=== PATIENT | female | born 1955 | race Caucasian/White ===

== ENCOUNTER → 2017-01-23 | Outpatient (CLI) | payer BC ==
[~2017-01-23] MED LIST: CHOL2000 PO; ESTR0.3T PO; LVT.05T PO
--- NOTE | 2017-01-23 18:49 | Diagnostic Imaging Report ---
Bilateral screening mammogram The current study was also evaluated with a Computer Aided Detection (CAD) system. Indication: Screening. No current complaints stated on the questionnaire. COMPARISON: 01/08/16. FINDINGS: The breasts are composed of almost entirely fat tissue. There is no mass, architectural distortion or suspicious cluster of calcification. Allowing for technique and positional differences, no suspicious change is seen. IMPRESSION: No significant change. ACR BI-RADS Category 2: Benign findings. Result letter will be mailed to the patient. Note: At least 10% of breast cancer is not imaged by mammography. Dictated by: Dictated on workstation # [id number]
== END ==
LOC: RAD 07:26
PROVIDERS: ATTEND Internal Medicine
DX: Z12.31 Encounter for screening mammogram for malignant neoplasm of breast (principal)
CPT/HCPCS: 77067

== ENCOUNTER → 2018-02-17 | Outpatient (CLI) | payer BC ==
--- NOTE | 2018-02-17 19:11 | Diagnostic Imaging Report ---
INDICATION: Routine screening. Comparison is made with prior study from 01/23/2017 and 01/08/2016. 2-D and 3-D bilateral screening mammography was performed with CAD. The current study was also evaluated with a Computer Aided Detection (CAD) system. FINDINGS: Both breasts are primarily involutional. Nodular densities in the inferior left breast anterior depth appear stable when compared with prior mammograms and consistent with benign etiology. No new mass or malignant-appearing microcalcifications are seen. The axillae are unremarkable. IMPRESSION: No mammographic features suspicious for malignancy are identified. ACR BI-RADS Category 2: Benign findings. Result letter will be mailed to the patient. Note: At least 10% of breast cancer is not imaged by mammography. Dictated by: Dictated on workstation # [id number]
== END ==
LOC: RAD 07:37
PROVIDERS: ATTEND Nurse Practitioner
DX: Z12.31 Encounter for screening mammogram for malignant neoplasm of breast (principal)
CPT/HCPCS: 77067

== ENCOUNTER → 2019-02-23 | Outpatient (CLI) | payer BC ==
--- NOTE | 2019-02-23 14:31 | Diagnostic Imaging Report ---
INDICATION: Routine screening. COMPARISON: 02/17/2018 and 01/23/2017. TECHNIQUE: 2D and 3D bilateral screening mammography was performed with CAD. FINDINGS: Both breasts are primarily involutional. Nodular densities on the left are stable. No new mass or malignant appearing microcalcifications are seen. The axillae are unremarkable. IMPRESSION: No mammographic features suspicious for malignancy are identified. ACR BI-RADS Category 2: Benign findings. Result letter will be mailed to the patient. Note: At least 10% of breast cancer is not imaged by mammography. Dictated by: Dictated on workstation # [id number]
== END ==
LOC: RAD 07:28
PROVIDERS: ATTEND Physician Assistant
DX: Z12.31 Encounter for screening mammogram for malignant neoplasm of breast (principal)
CPT/HCPCS: 77067

== ENCOUNTER → 2020-05-30 | Outpatient (CLI) | payer MEDICARE ==
--- NOTE | 2020-05-30 12:34 | Diagnostic Imaging Report ---
INDICATION: Routine screening. COMPARISON: 02/23/2019 and 02/17/2018. TECHNIQUE: 2D and 3D bilateral screening mammography was performed with CAD. FINDINGS: Scattered fibroglandular densities are identified bilaterally. The parenchymal pattern is stable. The patient has developed some oil cysts in the retroareolar aspect of the left breast. No spiculated mass or malignant appearing microcalcifications are seen. The axillae are unremarkable. IMPRESSION: No mammographic features suspicious for malignancy are identified. ACR BI-RADS Category 2: Benign findings. Result letter will be mailed to the patient. Note: At least 10% of breast cancer is not imaged by mammography. Dictated by: Dictated on workstation # [id number]
== END ==
LOC: RAD 07:29
PROVIDERS: ATTEND Physician Assistant
DX: Z12.31 Encounter for screening mammogram for malignant neoplasm of breast (principal)
CPT/HCPCS: 77063; 77067

== ENCOUNTER → 2020-07-06 | Outpatient (CLI) | payer MEDICARE ==
--- NOTE | 2020-07-06 17:01 | Diagnostic Imaging Report ---
PROCEDURE: CT head without contrast. TECHNIQUE: Multiple contiguous axial images were obtained through the brain without the use of intravenous contrast. Auto Exposure Controls were utilized during the CT exam to meet ALARA standards for radiation dose reduction. INDICATION: Headache and double vision this morning, diplopia and dizziness. COMPARISON: None. FINDINGS: The ventricles and cortical sulci are age-appropriate. There is no midline shift or mass effect. No acute intracranial hemorrhage is seen. There is no CT evidence of acute territorial ischemia. The calvarium appears intact. Visualized paranasal sinuses are clear. IMPRESSION: 1. No acute intracranial hemorrhage or CT evidence of acute territorial ischemia. Dictated by: Dictated on workstation # [id number]
== END ==
LOC: RAD 16:39
PROVIDERS: ATTEND Physician Assistant
DX: H53.2 Diplopia (principal); R51.9 Headache, unspecified; R42 Dizziness and giddiness
CPT/HCPCS: 70450

== ENCOUNTER → 2020-08-10 | Outpatient (CLI) | payer MEDICARE | LOC: CARD 14:00 | PROVIDERS: ATTEND Internal Medicine Cardiovascular Disease | DX: R00.2 Palpitations (principal); I10 Essential (primary) hypertension; R07.89 Other chest pain; R00.0 Tachycardia, unspecified; E78.2 Mixed hyperlipidemia; E03.9 Hypothyroidism, unspecified | CPT/HCPCS: 93225; 93226; 93306 ==

== ENCOUNTER → 2020-12-11 | Outpatient (CLI) | payer MEDICARE | LOC: LABNPT 06:00 | PROVIDERS: ATTEND Internal Medicine | DX: Z20.822 Contact with and (suspected) exposure to COVID-19 (principal) | CPT/HCPCS: 87635 ==

== ENCOUNTER → 2020-12-25 | Outpatient (CLI) | payer MEDICARE | LOC: LABNPT 06:04 | PROVIDERS: ATTEND Internal Medicine | DX: Z20.822 Contact with and (suspected) exposure to COVID-19 (principal) | CPT/HCPCS: 87635 ==

== ENCOUNTER → 2021-01-05 | Outpatient (CLI) | payer MEDICARE ==
--- NOTE | 2021-01-05 12:49 | Diagnostic Imaging Report ---
CLINICAL INDICATION: Patient with diplopia since July. Patient has history of cataract surgery. No history of cancer. EXAM: Axial CT scan of the orbits performed without IV contrast. Sagittal and coronal reformatted images are created. Auto Exposure Controls were utilized during the CT exam to meet ALARA standards for radiation dose reduction. COMPARISON: Head CT without contrast dated 07/06/2020. FINDINGS: There are postoperative changes to both globes which may be related to lens implants. Otherwise, both globes and orbits are unremarkable. There is no bony mass or destructive process seen. There is no retrobulbar fluid collection. The extraocular muscles are relatively symmetric bilaterally and unremarkable. There is no periorbital soft tissue abnormality. There is mild rightward nasal septal deviation noted. There is promise bullosa of left middle nasal turbinate. There is no significant paranasal sinus disease as visualized. IMPRESSION: 1: There are postoperative changes to both globes which may be related to lens implants from cataract surgery. Otherwise, unremarkable CT scan of the orbits and globes. 2: There is mild rightward nasal septal deviation. Dictated by: Dictated on workstation # [id number]
== END ==
LOC: RAD 07:45
PROVIDERS: ATTEND Internal Medicine
DX: H53.2 Diplopia (principal); J34.2 Deviated nasal septum; E03.8 Other specified hypothyroidism; E06.3 Autoimmune thyroiditis
CPT/HCPCS: 36415; 70480; 84445

== ENCOUNTER → 2021-07-18 | Outpatient (CLI) | payer MEDICARE ==
--- NOTE | 2021-07-18 12:59 | Diagnostic Imaging Report ---
Indication: Routine screening. Comparison is made with prior mammogram 05/30/2020 and 02/23/2019. 2-D and 3-D bilateral screening mammography was performed with CAD. Scattered fibroglandular densities are identified bilaterally. The parenchymal pattern is stable. No dominant mass or malignant-appearing microcalcifications are seen. Oil cyst in the retroareolar left breast again noted. Axillae are unremarkable. IMPRESSION: BI-RADS Category 2 No mammographic features suspicious for malignancy are identified. ACR BI-RADS Category 2: Benign findings. Result letter will be mailed to the patient. Note: At least 10% of breast cancer is not imaged by mammography. Dictated by: Dictated on workstation # [id number]
== END ==
LOC: RAD 08:00
PROVIDERS: ATTEND Nurse Practitioner
DX: Z12.31 Encounter for screening mammogram for malignant neoplasm of breast (principal)
CPT/HCPCS: 77063; 77067

== ENCOUNTER → 2021-07-20 | Outpatient (CLI) | payer MEDICARE ==
--- NOTE | 2021-07-20 11:15 | Diagnostic Imaging Report ---
PROCEDURE: US Thyroid. TECHNIQUE: Multiple real-time grayscale images were obtained of the thyroid in various projections. INDICATION: Graves' disease COMPARISON: None available FINDINGS: The right lobe measures 4.0 x 1.3 x 1.5 cm. The right thyroid lobe demonstrates a diffusely heterogeneous echotexture. A round hypoechoic nodule with posterior acoustic enhancement and circumscribed margins is noted within the mid right thyroid lobe measuring 1.1 x 1.0 x 0.7 cm. The left lobe of the thyroid gland measures 3.5 x 1.0 x 1.4 cm. It demonstrates a diffusely heterogeneous echotexture without discrete nodule. The isthmus is unremarkable. IMPRESSION: There is a 1.1 cm TI-RADS 4 nodule within the mid right thyroid lobe. Recommend a follow-up ultrasound in one year to ensure stability. Diffusely heterogeneous thyroid gland without left thyroid nodule. Dictated by: Dictated on workstation # [id number]
== END ==
LOC: RAD 08:20
PROVIDERS: ATTEND Physician Assistant
DX: E05.00 Thyrotoxicosis with diffuse goiter without thyrotoxic crisis or storm (principal); E04.1 Nontoxic single thyroid nodule
CPT/HCPCS: 76536

== ENCOUNTER → 2022-07-19 | Outpatient (CLI) | payer MEDICARE ==
--- NOTE | 2022-07-19 11:41 | Diagnostic Imaging Report ---
Indication: Routine screening. Comparison is made with prior mammograms from 07/18/2021 and 05/30/2020. 2-D and 3-D bilateral screening mammography was performed with CAD. Both breasts are primarily involutional. The parenchymal pattern appears stable. No spiculated mass or malignant-appearing microcalcifications are seen. Benign-appearing nodular densities in the left breast are stable. Axillae are unremarkable. IMPRESSION: BI-RADS Category 2 No mammographic features suspicious for malignancy are identified. ACR BI-RADS Category 2: Benign findings. Result letter will be mailed to the patient. Note: At least 10% of breast cancer is not imaged by mammography. Dictated by: Dictated on workstation # [id number]
== END ==
LOC: RAD 08:33
PROVIDERS: ATTEND Physician Assistant
DX: Z12.31 Encounter for screening mammogram for malignant neoplasm of breast (principal)
CPT/HCPCS: 77063; 77067

== ENCOUNTER → 2022-07-19 | Outpatient (CLI) | payer MEDICARE ==
--- NOTE | 2022-07-19 16:24 | Diagnostic Imaging Report ---
PROCEDURE: US Thyroid. TECHNIQUE: Multiple real-time grayscale images were obtained of the thyroid in various projections. INDICATION: Thyroid nodule. COMPARISON: 07/20/2021. FINDINGS: Right thyroid lobe: The right thyroid lobe measures 3.7 x 1.3 x 1.5 cm. It is again noted to be heterogeneous. Solid hypoechoic nodule with circumscribed margins, no echogenic foci that is widened tall, is stable in size measuring 1.3 cm (previously 1.1 cm). This is compatible with a TI RADS 4 lesion. Isthmus: The thyroid isthmus measures 0.2 cm. Left thyroid lobe: The left thyroid lobe measures 3.6 x 1.1 x 1.2 cm and is heterogeneous. No focal nodule. IMPRESSION: Stable right thyroid nodule. Additional follow-up in one year is recommended. TI-RADS Recommendations:TR4 - Moderately Suspicious: FNA if >1.5 cm; Follow if > 1.0 cm at 1, 2, 3 and 5 years. Dictated by: Dictated on workstation # [id number]
== END ==
LOC: RAD 08:47
PROVIDERS: ATTEND Internal Medicine
DX: E04.1 Nontoxic single thyroid nodule (principal)
CPT/HCPCS: 76536

== ENCOUNTER 2022-11-20 11:22 | Outpatient (CLI) | payer MEDICARE ==
[~2022-11-20] VITALS: Ht 160 cm; Wt 71.2 kg
[2022-11-20] MEDS ORDERED: OMEG100032 PO (12:54)
[2022-11-20] MEDS ORDERED: METO50TA7 PO (12:54)
== END 2022-11-20 12:58 | disposition home or self-care (01) ==
LOC: PREOP 11:22
PROVIDERS: ATTEND Surgery
DX: Z01.818 Encounter for other preprocedural examination (principal)

== ENCOUNTER 2022-11-27 10:51 | Day surgery (SDC) | payer MEDICARE ==
[~2022-11-27] VITALS: Ht 160 cm; Wt 71.2 kg
[~2022-11-27 10:51] MED LIST changes: +METO50TA7 PO; +OMEG100032 PO
[2022-11-27] MEDS ORDERED: LACTATED RINGERS 1,000 ML IV STA (10:59)
[2022-11-27] MEDS ORDERED: LIDOCAINE JELLY 2% 6 ML SYRINGE MM PRN (11:00)
[2022-11-27] MEDS ORDERED: LIDOCAINE JELLY 2% 6 ML SYRINGE ONE (11:10)
[2022-11-27 11:20] VITALS: BP 133/66
[2022-11-27] MEDS ORDERED: PROPOFOL INJECTION 50 ML IV ONE (11:38)
[2022-11-27] MEDS ORDERED: ONDANSETRON 4 MG (ZOFRAN) ORAL DISSOLVE TAB PO PRN (11:45)
[2022-11-27] MEDS ORDERED: ONDANSETRON 4 MG/2 ML (SDV) Z0FRAN IVP PRN (11:45)
--- NOTE | 2022-11-27 11:45 | Progress Note-Pre Operative ---
Pre-Operative Progress Note Date of Available H&P: Nov 27, 2022 Date H&P Reviewed: Nov 27, 2022 Time H&P Reviewed: 11:00 History & Physical: No changes noted Pre-Operative Diagnosis: screening o ASTRID GUTIERREZ MD Nov 27, 2022 11:45
[2022-11-27] MEDS ORDERED: MIDAZOLAM 2 MG/2 ML (VERSED) VIAL ONE (11:46)
--- NOTE | 2022-11-27 11:47 | Discharge Inst-Surgical ---
D/C Lap Instructions-BRENDA Follow Up Activity as tolerated High Fiber Diet 25g or more per day Avoid Alcohol, Caffeine, Spicy [place] and Acid foods. Drink 64 fluid oz or more of fluids per day. Symptoms to Report: Fever over 101 degree F, Nausea/Vomiting If any problems/questions: Contact your physician or go to Emergency Room ASTRID GUTIERREZ MD Nov 27, 2022 11:46
[2022-11-27 12:25] VITALS: BP 85/49
[2022-11-27 12:30] VITALS: BP 88/51
--- NOTE | 2022-11-27 12:34 | Progress Note-Post Operative ---
Post-Operative Progess Note Surgeon (s)/Knockout Machine Operator (s) Surgeon ASTRID GUTIERREZ MD Knockout Machine Operator: none Pre-Operative Diagnosis screening colo Post-Operative Diagnosis mild sigmoid diverticulosis. Procedure & Operative Findings Date of Procedure 11/27/22 Procedure Performed/Findings colonoscopy Anesthesia Type get Estimated Blood Loss Estimated blood loss (mL): minimal Specimens/Packing Specimens Removed none ASTRID GUTIERREZ MD Nov 27, 2022 12:34
[2022-11-27 12:35] VITALS: BP 88/51
--- NOTE | 2022-11-27 13:04 | Anesthesia-General Post-Op ---
MAC Patient Condition Mental Status/LOC: Same as Preop Cardiovascular: Satisfactory Nausea/Vomiting: Absent Respiratory: Satisfactory Pain: Controlled Complications: Absent Post Op Complications Complications None Follow Up Care/Instructions Patient Instructions None needed. Anesthesiology Discharge Order Discharge Order Patient is doing well, no complaints, stable vital signs, no apparent adverse anesthesia problems. No complications reported per nursing. VINNY PIKE CRNA Nov 27, 2022 13:04
[2022-11-27 13:08] VITALS: BP 88/51
--- NOTE | 2022-11-27 19:49 | OPERATIVE REPORT ---
DATE OF SERVICE: 11/27/2022 ATTENDING PRIMARY CARE PHYSICIAN: Jeremie Bender MD PREOPERATIVE DIAGNOSIS: Screening colonoscopy. POSTOPERATIVE DIAGNOSIS: Mild sigmoid diverticulosis. PROCEDURE: Colonoscopy. SURGEON: Astrid Gutierrez MD ANESTHESIA: Monitored anesthesia care. ESTIMATED BLOOD LOSS: Minimal. FINDINGS: Mild sigmoid diverticulosis. DISPOSITION: The patient tolerated the procedure well. INDICATIONS: The patient is a 67-year-old female referred over to us for screening colonoscopy. She did have a colonoscopy approximately 10 years ago and states that this was normal. She does not report any major issues with diarrhea, nor constipation as well as no red blood per rectum, nor any dark tarry stools. She also does not report any family history of colon cancer. DESCRIPTION OF PROCEDURE: The patient was brought to the endoscopy suite and laid in the left lateral decubitus position. After adequate IV pain and sedative medications and monitored anesthesia care, a digital rectal examination was performed. No significant hemorrhoids identified. Normal sphincter tone was felt and there were no palpable masses. The endoscope was then intubated into the anus, rectum gently insufflated. The endoscope was then advanced through the valves of Andrade of the rectum with no polyps or any neoplasms identified. Through the sigmoid colon, a mild sigmoid diverticulosis identified. The endoscope was then advanced to the remainder of the descending, transverse and ascending colon to the cecum, which were normal. No polyps or any neoplasms identified. The endoscope was slowly withdrawn while taking a second look and suctioning of residual air with no additional findings. The patient tolerated the procedure well. We will recommend continued medical management with a high-fiber diet with fiber supplement to equal or exceed 25 grams daily as well as significant amounts of water to promote soft consistency stools on a daily basis and if she is asymptomatic, she does not need another colonoscopy for another 10 years. Job ID: [id number] DocumentID: [id number] Dictated Date: 11/27/2022 12:27:56 Bridal Stylist Sales Consultant Date: 11/27/2022 19:11:00 Dictated By: ASTRID GUTIERREZ MD
== END 2022-11-27 13:40 | disposition home or self-care (01) ==
LOC: ENDO 10:51
PROVIDERS: ATTEND Surgery
DX: Z12.11 Encounter for screening for malignant neoplasm of colon (principal); K57.30 Diverticulosis of large intestine without perforation or abscess without bleeding; E03.9 Hypothyroidism, unspecified; Z79.890 Hormone replacement therapy

== ENCOUNTER 2022-11-29 11:58 | Emergency (ER) | payer MEDICARE ==
[~2022-11-29] VITALS: Ht 160 cm; Wt 68.0 kg
[2022-11-29] MEDS ORDERED: fentaNYL INJ 100 MCG/2 ML AMP IVP STA (12:21)
--- NOTE | 2022-11-29 12:21 | ED Abdominal Pain ---
General Chief Complaint: Abdominal/GI Problems Stated Complaint: LEFT SIDE PAIN | History of Present Illness Date Seen by Provider: Nov 29, 2022 Time Seen by Provider: 12:20 Initial Comments 67-year-old female presents with left lower quadrant pain. Patient reports that started about 45 minutes prior to arrival. That the pain is 10 all over. She does report a history of kidney stones that is similar however she also had a colonoscopy 2 days ago. Patient reports some mild nausea, pain has spread to be a little bit more diffuse. Allergies and Home Medications Allergies Coded Allergies: Iodine (Verified Allergy, Unknown, 10/14/08) Patient Home Medication List Home Medication List Reviewed: Yes Cholecalciferol (Vitamin D) 2,000 Unit Capsule, 2,000 UNIT PO DAILY, (Reported) Entered as Reported by: MARI DUBOIS on 08/12/12 1324 Levothyroxine Sodium (Synthroid) 50 Mcg Tablet, 1 EACH PO DAILY, (Reported) Entered as Reported by: MARI DUBOIS on 08/12/12 1324 Metoprolol Succinate (Metoprolol Succinate) 50 Mg Tab.er.24h, 50 MG PO DAILY, (Reported) Entered as Reported by: CLAUDIA VASQUEZ on 11/20/22 1254 [place]-3/Dha/Epa/Fish Oil (Fish Oil 1,000 mg Softgel) 1,000 Mg (120 Mg-180 Mg) Capsule, 1,000 MG PO DAILY, (Reported) Entered as Reported by: CLAUDIA VASQUEZ on 11/20/22 1254 Review of Systems Review of Systems Constitutional: No chills, No fever EENTM: No Symptoms Reported Respiratory: No Symptoms Reported Cardiovascular: No Symptoms Reported Gastrointestinal: Abdominal Pain, Nausea; Denies Vomiting Genitourinary: See HPI Musculoskeletal: no symptoms reported Skin: no symptoms reported Psychiatric/Neurological: No Symptoms Reported Endocrine: No Symptoms Reported Hematologic/Lymphatic: No Symptoms Reported Past [id number] Hx Immunizations Up To Date First/Initial COVID19 Vaccinat: YES Second COVID19 Vaccination Jimmy: YES Third COVID19 Vaccination Date: NO Seasonal Allergies Seasonal Allergies: No Past Medical History Surgeries: Yes (BILAT CATARACT) Hysterectomy Respiratory: No Cardiac: Yes High Cholesterol Neurological: No Genitourinary: No Gastrointestinal: No Musculoskeletal: No Endocrine: Yes (HYPOTHYROIDISM) HEENT: No Cancer: No Psychosocial: No Integumentary: No Blood Disorders: No Physical Exam Vital Signs Vital Signs - First Documented 11/29/22 12:17 Temp 36.4 Pulse 82 Resp 26 B/P (MAP) 147/96 (113) Pulse Ox 100 O2 Delivery Room Air Capillary Refill : Height/Weight/BMI Height: '" Weight: lbs. oz. kg; 27.81 BMI Method: General Appearance: mild distress Respiratory: lungs clear, normal breath sounds Cardiovascular: normal peripheral pulses, regular rate, rhythm Gastrointestinal: rebound, tenderness Back: No CVA tenderness (R), No CVA tenderness (L) Neurologic/Psychiatric: alert, normal mood/affect, oriented x 3 Skin: normal color, warm/dry Focused Exam Lactate Level 11/29/22 12:45: Lactic Acid Level 3.61*H Lactic Acid Level Laboratory Tests Test 11/29/22 12:45 Lactic Acid Level 3.61 MMOL/L (0.50-2.00) *H Progress/Results/Core Measures Results/Orders Lab Results Laboratory Tests Test 11/29/22 12:30 11/29/22 12:45 11/29/22 13:35 Range/Units White Blood Count 10.6 4.3-11.0 10^3/uL Red Blood Count 4.81 3.80-5.11 10^6/uL Hemoglobin 13.9 11.5-16.0 g/dL Hematocrit 42 35-52 % Mean Corpuscular Volume 87 80-99 fL Mean Corpuscular Hemoglobin 29 25-34 pg Mean Corpuscular Hemoglobin Concent 33 32-36 g/dL Red Cell Distribution Width 13.5 10.0-14.5 % Platelet Count 298 130-400 10^3/uL Mean Platelet Volume 9.2 9.0-12.2 fL Immature Granulocyte % (Auto) 1 % Neutrophils (%) (Auto) 48 42-75 % Lymphocytes (%) (Auto) 43 12-44 % Monocytes (%) (Auto) 7 0-12 % Eosinophils (%) (Auto) 1 0-10 % Basophils (%) (Auto) 1 0-10 % Neutrophils # (Auto) 5.1 1.8-7.8 10^3/uL Lymphocytes # (Auto) 4.5 H 1.0-4.0 10^3/uL Monocytes # (Auto) 0.7 0.0-1.0 10^3/uL Eosinophils # (Auto) 0.1 0.0-0.3 10^3/uL Basophils # (Auto) 0.1 0.0-0.1 10^3/uL Immature Granulocyte # (Auto) 0.1 0.0-0.1 10^3/uL Sodium Level 140 135-145 MMOL/L Potassium Level 3.7 3.6-5.0 MMOL/L Chloride Level 106 98-107 MMOL/L Carbon Dioxide Level 20 L 21-32 MMOL/L Anion Gap 14 5-14 MMOL/L Blood Urea Nitrogen 14 7-18 MG/DL Creatinine 0.79 0.60-1.30 MG/DL Estimat Glomerular Filtration Rate 81 BUN/Creatinine Ratio 18 Glucose Level 129 H 70-105 MG/DL Calcium Level 9.1 8.5-10.1 MG/DL Corrected Calcium 9.0 8.5-10.1 MG/DL Total Bilirubin 0.4 0.1-1.0 MG/DL Aspartate Amino Transf (AST/SGOT) 23 5-34 U/L Alanine Aminotransferase (ALT/SGPT) 26 0-55 U/L Alkaline Phosphatase 84 40-136 U/L Total Protein 7.1 6.4-8.2 GM/DL Albumin 4.1 3.2-4.5 GM/DL Lactic Acid Level 3.61 *H 0.50-2.00 MMOL/L Urine Color YELLOW Urine Clarity CLEAR Urine pH 5.5 5-9 Urine Specific [place] >=1.030 1.016-1.022 Urine Protein NEGATIVE NEGATIVE Urine Glucose (UA) NEGATIVE NEGATIVE Urine Ketones NEGATIVE NEGATIVE Urine Nitrite NEGATIVE NEGATIVE Urine Bilirubin NEGATIVE NEGATIVE Urine Urobilinogen 0.2 < = 1.0 MG/DL Urine Leukocyte Esterase NEGATIVE NEGATIVE Urine RBC (Auto) 3+ H NEGATIVE Urine RBC 25-50 H /HPF Urine WBC RARE /HPF Urine Squamous Epithelial Cells RARE /HPF Urine Crystals NONE /LPF Urine Bacteria TRACE /HPF Urine Casts NONE /LPF Urine Mucus NEGATIVE /LPF Urine Culture Indicated NO My Orders Orders - RICHELLE ANTHONY DO Cbc With Automated Diff (11/29/22 12:21) Comprehensive Metabolic Panel (11/29/22 12:21) Lactic Acid Analyzer (11/29/22 12:21) Ua Culture If Indicated (11/29/22 12:21) Ondansetron Injection (Zofran Injectio (11/29/22 12:30) Fentanyl Inj (Sublimaze Injection) (11/29/22 12:21) Ct Abdomen/Pelvis Wo (11/29/22 12:21) Ketorolac Injection (Toradol Injection) (11/29/22 12:54) Ns Iv 1000 Ml (Sodium Chloride 0.9%) (11/29/22 13:13) Ns Iv 1000 Ml (Sodium Chloride 0.9%) (11/29/22 13:39) Medications Given in ED Current Medications Medications Dose Ordered Sig/Alana Route Start Time Stop Time Status Last Admin Dose Admin Ondansetron HCl 4 mg ONCE ONCE IVP 11/29/22 12:30 11/29/22 12:31 DC 11/29/22 12:36 4 MG Vital Signs/I&O 11/29/22 12:17 Temp 36.4 Pulse 82 Resp 26 B/P (MAP) 147/96 (113) Pulse Ox 100 O2 Delivery Room Air Progress Progress Note : Progress Note patient's labs were reviewed and showed no acute findings outside of some hematuria. I did review her colonoscopy report that showed no acute findings and no complications. Patient CT was reviewed and shows a 2 to 3 mm stone in the UVJ. Patient's symptoms improved with IV fluids and pain medication. Patient's lactic likely still mildly elevated from her colonoscopy and ureter stone. Patient was given 1 L IV fluids. Her vital signs were stable. Patient to be discharged home. I will provide her with a couple hydrocodone's for breakthrough pain along with some nausea medicine. Recommend she follow-up with her primary care provider if symptoms have not improved in 1 week. She is stable and discharged Diagnostic Imaging Diagonstic Imaging: CT Plain Films/CT/US/NM/MRI: abdomen Comments Draft Date of Exam:11/29/22 CT ABDOMEN/PELVIS WO PROCEDURE: CT abdomen and pelvis without contrast. TECHNIQUE: Multiple contiguous axial images were obtained through the abdomen and pelvis without the use of intravenous contrast. Auto Exposure Controls were utilized during the CT exam to meet ALARA standards for radiation dose reduction. INDICATION: Left lower quadrant abdominal pain. Nausea. COMPARISON: 10/22/2013. FINDINGS: Included portions of the lung bases show 4 mm micronodule associated with the minor fissure on the right. Lungs are otherwise clear. CT ABDOMEN: 2-3 mm micronodule is identified at the left UVJ (image 159, series 3). As a result, there is mild proximal hydroureteronephrosis. No additional renal or ureteral calculi are seen on either side. There is no hydronephrosis or other evidence of obstruction on the right. Liver shows geographic areas of decreased attenuation consistent with hepatic steatosis. The adrenal glands, spleen, and pancreas have an unremarkable noncontrast CT appearance. Small bowel loops are nondistended. Normal appendix is identified. There is no loculated fluid collection, free fluid, or free air within the abdomen. No abnormal mesenteric or retroperitoneal adenopathy is seen. Osseous structures show no acute abnormalities. CT PELVIS: Again, there is small calculus at the left UVJ. Urinary bladder is otherwise unopacified and minimally distended. There is no loculated fluid collection, free fluid, or free air within the pelvis. No abnormal adenopathy is seen. Osseous structures show no acute abnormalities. IMPRESSION: 1. Mild left-sided hydroureteronephrosis secondary to 2-3 mm calculus at the left UVJ. 2. Hepatic steatosis. 3. Small micronodule associated with the right minor fissure. Conceivably, this could be on the basis of intrafissural lymph node. If patient is in a high-risk category, such as history of smoking, one-year follow-up could be performed to ensure stability. Departure Impression Primary Impression: Left ureteral calculus Disposition: 01 HOME, SELF-CARE Condition: Stable Departure-Patient Inst. Referrals: SHEILA SORTO MD (PCP/Family) Primary Care Physician Patient Instructions: How to Strain Your Urine, Kidney Stones in Adults, Kidney Stone Diet Add. Discharge Instructions: Drink plenty of fluids, 800 mg ibuprofen every 6-8 hours as needed for pain. I have provided you a few hydrocodone's for breakthrough pain please use these sparingly. Follow-up with your primary care provider in 1 week if symptoms have not improved. All discharge instructions reviewed with patient and/or family. Voiced understanding. Scripts Hydrocodone/Acetaminophen (Hydrocodone-Acetamin 5-325 mg) 5 Mg-325 Mg Tablet 1 TAB PO Q8H PRN for PAIN-MODERATE (5-7), #5 TAB Prov: RICHELLE ANTHONY DO 11/29/22 Ondansetron (Ondansetron Odt) 4 Mg Tab.rapdis 4 MG PO Q6H PRN for NAUSEA/VOMITING, #20 TAB 0 Refills Prov: RICHELLE ANTHONY DO 11/29/22 RICHELLE ANTHONY DO Nov 29, 2022 12:21
[2022-11-29] MEDS ORDERED: ONDANSETRON 4 MG/2 ML (SDV) Z0FRAN IVP ONE (12:30)
[2022-11-29 12:40] LABS: BASOPHILS # (AUTO) 0.1 10^3/uL (0.0-0.1); BASOPHILS % (AUTO) 1 % (0-10); EOSINOPHILS # (AUTO) 0.1 10^3/uL (0.0-0.3); EOSINOPHILS % (AUTO) 1 % (0-10); HEMATOCRIT 42 % (35-52); HEMOGLOBIN 13.9 g/dL (11.5-16.0); LYMPHOCYTES # (AUTO) 4.5 10^3/uL (1.0-4.0); LYMPHOCYTES % (AUTO) 43 % (12-44); MEAN CORPUSCULAR HEMOGLOBIN 29 pg (25-34); MEAN CORPUSCULAR HGB CONC 33 g/dL (32-36); MEAN CORPUSCULAR VOLUME 87 fL (80-99); MEAN PLATELET VOLUME 9.2 fL (9.0-12.2); MONOCYTES # (AUTO) 0.7 10^3/uL (0.0-1.0); MONOCYTES % (AUTO) 7 % (0-12); NEUTROPHILS # (AUTO) 5.1 10^3/uL (1.8-7.8); NEUTROPHILS % (AUTO) 48 % (42-75); PLATELET COUNT 298 10^3/uL (130-400); WHITE BLOOD COUNT 10.6 10^3/uL (4.3-11.0)
[2022-11-29 12:50] LABS: ALBUMIN 4.1 GM/DL (3.2-4.5); POTASSIUM 3.7 MMOL/L (3.6-5.0)
[2022-11-29 12:51] LABS: CALCIUM 9.1 MG/DL (8.5-10.1)
[2022-11-29 12:52] LABS: TOTAL PROTEIN 7.1 GM/DL (6.4-8.2)
[2022-11-29 12:54] LABS: BILIRUBIN,TOTAL 0.4 MG/DL (0.1-1.0)
[2022-11-29] MEDS ORDERED: KETOROLAC 30 MG/ML VIAL IVP STA (12:54)
[2022-11-29 12:56] LABS: CREATININE SERUM 0.79 MG/DL (0.60-1.30)
[2022-11-29] MEDS ORDERED: NS IV 1000 ML 1,000 ML IV STA ×2 (13:13→13:39)
--- NOTE | 2022-11-29 13:29 | Diagnostic Imaging Report ---
PROCEDURE: CT abdomen and pelvis without contrast. TECHNIQUE: Multiple contiguous axial images were obtained through the abdomen and pelvis without the use of intravenous contrast. Auto Exposure Controls were utilized during the CT exam to meet ALARA standards for radiation dose reduction. INDICATION: Left lower quadrant abdominal pain. Nausea. COMPARISON: 10/22/2013. FINDINGS: Included portions of the lung bases show 4 mm micronodule associated with the minor fissure on the right. Lungs are otherwise clear. CT ABDOMEN: 2-3 mm micronodule is identified at the left UVJ (image 159, series 3). As a result, there is mild proximal hydroureteronephrosis. No additional renal or ureteral calculi are seen on either side. There is no hydronephrosis or other evidence of obstruction on the right. Liver shows geographic areas of decreased attenuation consistent with hepatic steatosis. The adrenal glands, spleen, and pancreas have an unremarkable noncontrast CT appearance. Small bowel loops are nondistended. Normal appendix is identified. There is no loculated fluid collection, free fluid, or free air within the abdomen. No abnormal mesenteric or retroperitoneal adenopathy is seen. Osseous structures show no acute abnormalities. CT PELVIS: Again, there is small calculus at the left UVJ. Urinary bladder is otherwise unopacified and minimally distended. There is no loculated fluid collection, free fluid, or free air within the pelvis. No abnormal adenopathy is seen. Osseous structures show no acute abnormalities. IMPRESSION: 1. Mild left-sided hydroureteronephrosis secondary to 2-3 mm calculus at the left UVJ. 2. Hepatic steatosis. 3. Small micronodule associated with the right minor fissure. Conceivably, this could be on the basis of intrafissural lymph node. If patient is in a high-risk category, such as history of smoking, one-year follow-up could be performed to ensure stability. Dictated by: Dictated on workstation # [id number]
[2022-11-29 13:42] LABS: BILIRUBIN,URINE NEGATIVE (NEGATIVE); CLARITY,URINE CLEAR; COLOR,URINE YELLOW; GLUCOSE, URINE (UA) NEGATIVE (NEGATIVE); KETONES,URINE NEGATIVE (NEGATIVE); LEUKOCYTE ESTERASE ,URINE NEGATIVE (NEGATIVE); NITRITE,URINE NEGATIVE (NEGATIVE); PH,URINE 5.5 (5-9); PROTEIN,URINE NEGATIVE (NEGATIVE)
[2022-11-29 13:50] LABS: BACTERIA,URINE TRACE /HPF; RBC,URINE 25-50 /HPF; SQUAMOUS EPITHELIAL CELL,UR RARE /HPF; WBC,URINE RARE /HPF
[2022-11-29] MEDS ORDERED: ONDA4TAB11 PO (14:21)
[2022-11-29] MEDS ORDERED: ACHD5005 PO (14:21)
[2022-11-29 14:30] VITALS: BP 129/63
== END 2022-11-29 14:30 | disposition home or self-care (01) ==
LOC: EDUNIT# 11:58 → ER 11:59
DX: N13.2 Hydronephrosis with renal and ureteral calculous obstruction (principal)
CPT/HCPCS: 36415; 74176; 80053; 81000; 83605; 85025

== ENCOUNTER → 2023-05-27 | Outpatient (CLI) | payer MEDICARE ==
[~2023-05-27] MED LIST changes: +ACHD5005 PO; +ONDA4TAB11 PO
[2023-05-27 09:23] LABS: CALCIUM 9.5 MG/DL (8.5-10.1)
[2023-05-27 09:27] LABS: CREATININE SERUM 0.74 MG/DL (0.60-1.30)
== END ==
LOC: LAB 08:39
PROVIDERS: ATTEND Internal Medicine
DX: R10.31 Right lower quadrant pain (principal)
CPT/HCPCS: 36415; 80048

== ENCOUNTER → 2023-06-04 | Outpatient (CLI) | payer MEDICARE ==
[~2023-06-04] MED LIST changes: +HOLD METFORMIN - RECEIVED CONTRAST 20 ML VIAL IV SCH; +IOHEXOL 350 MG/ML 100 ML (OMNIPAQUE 350) VIAL IV ONE; +NS 100 ML (IVPB) BAG IV ONE
--- NOTE | 2023-06-04 08:17 | Diagnostic Imaging Report ---
PROCEDURE: CT abdomen and pelvis with contrast. TECHNIQUE: Multiple contiguous axial images were obtained through the abdomen and pelvis after administration of intravenous contrast. Auto Exposure Controls were utilized during the CT exam to meet ALARA standards for radiation dose reduction. All CT scans use one or more of the following dose optimizing techniques: automated exposure control, MA and/or KvP adjustment based on patient size and exam type or iterative reconstruction. INDICATION: Right lower quadrant abdominal pain for the last 2 weeks. Comparison is made with prior CT from 11/29/2022. The lung bases are clear. Diffuse low-attenuation throughout the liver is noted consistent with hepatic steatosis. Low-attenuation lesion in the right lobe of the liver is stable and suggestive of a cyst. The gallbladder is unremarkable. There is no biliary ductal dilatation. Pancreas and spleen are unremarkable. No adrenal mass is identified. No renal calculi or hydronephrosis is identified. Aorta is nonaneurysmal. The small and large bowel loops appear to be normal caliber. Occasional diverticula are present but no evidence of acute diverticulitis. Appendix is unremarkable. There is no evidence of acute appendicitis. There is a small fat-containing umbilical hernia. No free fluid or fluid collection is seen. Bladder is decompressed. Uterus appears surgically absent. IMPRESSION: 1. Hepatic steatosis. 2. Uncomplicated diverticulosis. 3. No acute feature in the abdomen or pelvis is identified. Dictated by: Dictated on workstation # [id number]
== END ==
LOC: RAD 07:45
PROVIDERS: ATTEND Internal Medicine
DX: K76.0 Fatty (change of) liver, not elsewhere classified (principal); K57.90 Diverticulosis of intestine, part unspecified, without perforation or abscess without bleeding
CPT/HCPCS: 74177

== ENCOUNTER → 2023-07-15 | Outpatient (CLI) | payer MEDICARE ==
[~2023-07-15] MED LIST changes: -HOLD METFORMIN - RECEIVED CONTRAST 20 ML VIAL IV SCH; -IOHEXOL 350 MG/ML 100 ML (OMNIPAQUE 350) VIAL IV ONE; -NS 100 ML (IVPB) BAG IV ONE
--- NOTE | 2023-07-15 16:46 | Diagnostic Imaging Report ---
INDICATION: Thyroid nodule. Followup. COMPARISON: 07/19/2022. FINDINGS: Dedicated thyroid sonogram was performed. FINDINGS: The hypoechoic well-circumscribed noncalcified nodule is again identified within the superior margins of the right thyroid lobe. It measures 1.2 x 1 x 0.6 cm on today's exam. This is stable compared to 1.3 x 0.8 x 1 cm previously. The imaging appearance remains consistent with a TI-RADS 4 lesion. No new suspicious thyroid nodule or mass is seen on either side. Right lobe measures 2.1 x 1.1 x 1.3 cm and the left measures 2 x 0.8 x 0.8 cm. Isthmus measures 2 mm in AP thickness. Background thyroid parenchyma is homogeneous. Color flow images show normal vascularity. IMPRESSION: Stable right thyroid nodule. Repeat followup with annual thyroid sonogram is advised to ensure ongoing stability. Dictated by: Dictated on workstation # [id number]
== END ==
LOC: RAD 08:00
PROVIDERS: ATTEND Internal Medicine
DX: E04.1 Nontoxic single thyroid nodule (principal); E03.9 Hypothyroidism, unspecified
CPT/HCPCS: 76536

== ENCOUNTER → 2023-07-31 | Outpatient (CLI) | payer MEDICARE ==
[~2023-07-31] VITALS: Ht 160 cm; Wt 68.2 kg
[~2023-07-31] MED LIST changes: +EZET-55 PO; +UBID100C44 PO
== END | disposition home or self-care (01) ==
LOC: PREOP 05:29
PROVIDERS: ATTEND Surgery
DX: Z01.818 Encounter for other preprocedural examination (principal)

== ENCOUNTER 2023-08-07 12:00 | Day surgery (SDC) | payer MEDICARE ==
--- NOTE | 2023-07-30 08:16 | HISTORY AND PHYSICAL ---
DATE OF SERVICE: 08/07/2023 ATTENDING PRIMARY CARE PHYSICIAN: Dr. Jeremie Bender. HISTORY OF PRESENT ILLNESS: The patient is a 67-year-old female known to us. We had done a screening colonoscopy on her in 11/2022 and she was found to have mild sigmoid diverticulosis. She had developed some nonspecific right lateral and upper quadrant abdominal pain and she underwent a CT scan, which did show liver steatosis; however, no other abnormalities. Now she reports that in the past several months she has had worsening discomfort and states she would have episodes of pain in the right upper abdominal quadrant, which would come on all of a sudden and last for approximately 10-15 minutes and then resolve on its own. She states that this has been going on for the past several months. She then also reports in 05/2023, she was vacationing and after dinner she did have a significant episode of pain in the right upper abdominal quadrant, which persisted and this also resulted in nausea and vomiting. She underwent an ultrasound, which did not show any gallstones; however, HIDA scan done on 07/10/2023 did show ejection fraction of 15% and with the administration of the Kinevac analogue she did have reproduction of symptoms consistent with biliary dyskinesia. PAST MEDICAL HISTORY: Sinus tachycardia, thyroid eye disease, history of nephrolithiasis. PAST SURGICAL HISTORY: Bilateral cataracts, partial hysterectomy. ALLERGIES: IODINE. MEDICATIONS: Synthroid 50 mcg daily, metoprolol 50 mg daily, ezetimibe/simvastatin 10/10 mg daily, vitamin D daily. SOCIAL HISTORY: Negative smoke, negative alcohol. FAMILY HISTORY: Noncontributory. VITAL SIGNS: Blood pressure 151/73, current weight 150 pounds at 5 feet 3 inches and a body mass index of 26. REVIEW OF SYSTEMS: Well-nourished female in no acute distress. She is not experiencing any shortness of breath or difficulty breathing. No chest pain, palpitations, diaphoresis. No nausea or vomiting. No diarrhea or constipation. No fever or chills. No recent inadvertent weight loss. She is having some intermittent pain in the right upper abdominal quadrant with one episode of vomiting. No fever or chills. No recent inadvertent weight loss. All other review of systems negative. PHYSICAL EXAMINATION: CHEST: Clear. Good breath sounds bilaterally. HEART: Regular. No murmurs. EXTREMITIES: No lower extremity edema. Negative Homans sign. HEENT: No scleral icterus. No cervical lymphadenopathy. ABDOMEN: Soft, nontender, nondistended. SKIN: Warm, dry. ASSESSMENT AND PLAN: A 67-year-old female with symptomatic biliary dyskinesia. The natural history of this disease process was explained to the patient as well as the risks and benefits of surgery and she is in full understanding of this and would like to proceed with a laparoscopic cholecystectomy, which will be scheduled on 08/07/2023. Job ID: [id number] DocumentID: [id number] Dictated Date: 07/15/2023 16:31:07 Shipyard Painting Supervisor Date: 07/15/2023 16:50:00 Dictated By: ASTRID GUTIERREZ MD
[2023-08-07] VITALS (11 sets, daily range): BP systolic 114–143; BP diastolic 51–70
[~2023-08-07] VITALS: Ht 160 cm; Wt 68.2 kg
[2023-08-07] MEDS ORDERED: LACTATED RINGERS 1,000 ML 1,000 ML IV PRN (12:15)
[2023-08-07] MEDS ORDERED: ceFAZolin INJECTION 1,000 MG in NS (IVPB) 50 ML 50 ML IV ONE (12:15)
--- NOTE | 2023-08-07 12:36 | Progress Note-Pre Operative ---
Pre-Operative Progress Note Date of Available H&P: Aug 07, 2023 Date H&P Reviewed: Aug 07, 2023 Time H&P Reviewed: 12:30 History & Physical: No changes noted Pre-Operative Diagnosis: sx biliary dyskinesia ASTRID GUTIERREZ MD Aug 07, 2023 12:35
[2023-08-07] MEDS ORDERED: HYDR-3817 PO (12:37)
--- NOTE | 2023-08-07 12:38 | Discharge Inst-Surgical ---
D/C Lap Instructions-BRENDA New, Converted, or Re-Newed RX: RX on Chart Follow Up Appt in 2 weeks Activity as tolerated No driving for 24 hours No driving while on pain medications Incentive Spirometry use every 2 hours while awake Regular Diet Symptoms to Report: Fever over 101 degree F, Nausea/Vomiting Infection Signs and Symptoms to report: Increased redness, Foul odor of wound, Increased drainage Bathing instructions: May shower Operative Area Clean/Dry; Keep incision clean/dry If any problems/questions: Contact your physician or go to Emergency Room ASTRID GUTIERREZ MD Aug 07, 2023 12:38
[2023-08-07] MEDS ORDERED: ONDANSETRON INJECTION 4 MG/2 ML (SDV) IVP PRN ×2 (12:45→15:45)
[2023-08-07] MEDS ORDERED: oxyCODONE/ACETAMINOPHEN 5/325MG TABLET PO PRN (12:45)
[2023-08-07] MEDS ORDERED: morphine INJ 10 MG/ML 1ML (SYR OR VIAL) IVP PRN ×2 (12:45)
[2023-08-07] MEDS ORDERED: ACETAMINOPHEN 325 MG TABLET PO PRN (12:45)
[2023-08-07] MEDS ORDERED: LIDOCAINE 2% w/EPI 1:100,000 20 ML VIAL ONE (12:47)
[2023-08-07] MEDS ORDERED: LIDOCAINE PF 2% 5 ML VIAL ONE (14:34)
[2023-08-07] MEDS ORDERED: ROCURONIUM 50 MG/5 ML VIAL IV ONE (14:34)
[2023-08-07] MEDS ORDERED: proPOfol INJECTION 200 MG/20 ML VIAL IV ONE (14:34)
[2023-08-07] MEDS ORDERED: ONDANSETRON INJECTION 4 MG/2 ML (SDV) ONE (14:34)
[2023-08-07] MEDS ORDERED: fentaNYL INJECTION 100 MCG/2 ML VIAL ONE (14:34)
[2023-08-07] MEDS ORDERED: MIDAZOLAM INJ 2 MG/2 ML VIAL ONE (14:34)
[2023-08-07] MEDS ORDERED: dexAMETHasone INJ 10 MG/ML 1 ML VIAL ONE (14:34)
--- NOTE | 2023-08-07 15:25 | Progress Note-Post Operative ---
Post-Operative Progess Note Surgeon (s)/Plastic Sheets Supervisor (s) Surgeon ASTRID GUTIERREZ MD Plastic Sheets Supervisor: arie juarez MASTER FIRE CONTROL TECHNICIAN Pre-Operative Diagnosis sx biliary dyskinesia Post-Operative Diagnosis same Procedure & Operative Findings Date of Procedure 08/07/23 Procedure Performed/Findings laparoscopic cholecystectomy Anesthesia Type get Estimated Blood Loss Estimated blood loss (mL): minimal Specimens/Packing Specimens Removed gallbladder ASTRID GUTIERREZ MD Aug 07, 2023 15:25
[2023-08-07] MEDS ORDERED: NEOSTIGMINE 1 MG/1ML 10 ML VIAL ONE (15:27)
[2023-08-07] MEDS ORDERED: GLYCOPYRROLATE INJ 0.2 MG/ML 2 ML VIAL ONE (15:27)
[2023-08-07] MEDS ORDERED: SEVOFLURANE (ULTANE) 15 ML INHAL SOLN ONE (15:29)
[2023-08-07] MEDS ORDERED: fentaNYL INJECTION 100 MCG/2 ML VIAL IVP ONE (15:45)
[2023-08-07] MEDS ORDERED: PROMETHAZINE INJ 25 MG/ML VIAL IVP ONE (15:45)
[2023-08-07] MEDS ORDERED: HYDROmorphone INJECTION 2 MG/ML VIAL IV ONE (15:45)
--- NOTE | 2023-08-07 18:24 | Anesthesia-General Post-Op ---
General Patient Condition Mental Status/LOC: Same as Preop Cardiovascular: Satisfactory Nausea/Vomiting: Absent Respiratory: Satisfactory Pain: Controlled Complications: Absent Post Op Complications Complications None Follow Up Care/Instructions Patient Instructions None needed. Anesthesia/Patient Condition Patient Condition Patient is doing well, no complaints, stable vital signs, no apparent adverse anesthesia problems. No complications reported per nursing. VINNY PIKE CRNA Aug 07, 2023 18:24
--- NOTE | 2023-08-07 23:01 | OPERATIVE REPORT ---
DATE OF SERVICE: 08/07/2023 ATTENDING PRIMARY CARE PHYSICIAN: Jeremie Bender MD INDICATIONS: The patient is a 67-year-old female who has had a 6 month history of pain in the right upper abdominal quadrant on an intermittent basis, which would last for approximately 15 minutes and then resolve on its own. This would normally occur after eating meals. She reports that while she was on vacation and after dinner she had a significant episode with pain in the right upper abdominal quadrant as well as associated nausea and vomiting. She underwent the gallbladder ultrasound, which did not show any gallstones, however, HIDA scan was performed on 07/10/2023, which did show a low ejection fraction of 15% with the administration of the Kinevac analogue as well as reproduction of symptoms consistent with biliary dyskinesia. DESCRIPTION OF PROCEDURE: The patient was brought to the operating room, laid supine on the table. After adequate IV pain and sedative medications and general endotracheal intubation, the abdomen was prepped and draped in standard surgical fashion. A 2% lidocaine with epinephrine was then used to anesthetize the overlying skin in the left upper abdominal quadrant and a transverse skin incision made using a #15 blade. An 0 silk suture was applied to the medial aspect of the incision for retraction and a Veress needle inserted with a low opening pressure of 0 mmHg and the abdomen was then insufflated to 15 mmHg pressure. The Veress needle removed and a 5 mm trocar placed followed by a 5 mm 45-degree angle laparoscope visualized the peritoneal cavity. A 4-quadrant abdominal exploration was performed. There was a slightly distended gallbladder, no gallbladder wall thickening. Under direct visualization, we then proceeded to place a supraumbilical 10 mm port after the skin and peritoneal lining were anesthetized using 0.5% Marcaine with epinephrine and a transverse skin incision made using a #15 blade. In a similar manner, a right upper abdominal quadrant 5 mm port was placed. The patient was then placed in reverse Trendelenburg position as well as plane right side up, left side down. The fundus of the gallbladder was then retracted anteriorly and superiorly and the hepatoduodenal ligament was then dissected using blunt dissection as well as electrocautery using the hook instrument as well as a [place] dissector. The entire critical view of safety was identified including the triangle of Calot as well as the cystic duct and artery as the only 2 structures going into the gallbladder as well as the cystic plate behind the proximal gallbladder. A timeout was then taken and the cystic duct and artery were then clipped proximally and distally and cut with EndoShears. The gallbladder was then dissected off the liver bed using cautery on hook instrument with visualization of good hemostasis as well as no leaking ducts of Luschka. The gallbladder was removed through the 10 mm port site using an EndoCatch bag. The 10 mm port site fascia and peritoneum were then closed under direct visualization using a Shane-Nayana device and 0 Vicryl suture. The abdomen was then desufflated and the remaining ports were removed. All skin incisions were closed using 4-0 Monocryl running subcuticular sutures. Wounds were then cleaned and covered with Dermabond. The patient tolerated the procedure well. We will start IV normal pain medication as well as a clear liquid diet. Once she is tolerating clears, has good pain control with oral pain medication and is ambulating well, we will discharge her home where she will be instructed to do no heavy lifting or exertion for the next 2 weeks. Job ID: [id number] DocumentID: [id number] Dictated Date: 08/07/2023 15:30:47 Manager Automotive Date: 08/07/2023 23:00:00 Dictated By: MD NITESH COPPOLA
== END 2023-08-07 18:05 | disposition home or self-care (01) ==
LOC: SDC 12:00
PROVIDERS: ATTEND Surgery
DX: K81.1 Chronic cholecystitis (principal); K82.8 Other specified diseases of gallbladder
CPT/HCPCS: 87081